=== PATIENT | female | born 2000 | race Hispanic/Latino ===

== ENCOUNTER → 2023-09-19 | Emergency (ER) | payer OTHER, BC ==
--- OUTSIDE RECORDS SUMMARY | 2023-09-19 11:31 | XMS REPORT | Continuity of Care Document ---
Author Name Unknown Address [address] [place] [address] [address] [place], [place] [id number] [place] [address] thconnect Address [address] [facility] [address] [place] [address] Care Team Providers Care Logistics Service Representative Name Role Phone [email or web address] Attending Clinician Unavaila ble [email or web address]_S Admitting Clinician Unavaila ble Payers Payer Name Policy Type Policy Number Effective Date Expirati on Date Source [place] [id number] 2021 00:00:00 Encounters Start Date/Time End Date/Time Encounter Type Admission Type Attending Clinicians Care Facility Care Department Encounter ID Source 2023-06-19 16:54:00 Outpatient [facility] [id number] [facility] 2023-08-28 00:00:00 2023-08-28 00:00:00 Outpatient [email or web address] [email or web address]_S PRIV PRIV [id number] [facility] 2023-07-30 00:00:00 2023-07-30 00:00:00 Outpatient [email or web address] diyala_S PRIV PRIV [id number] [facility] 2023-07-30 00:00:00 2023-07-30 00:00:00 Outpatient [email or web address] diyala_S PRIV PRIV [id number] [facility]
--- NOTE | 2023-09-19 12:47 | RAD REPORT ---
EXAM DESCRIPTION: CT - Head C Spine Mpr Wo Con - 09/19/2023 12:17 pm CLINICAL HISTORY: Head and neck injury status post fall. Head and neck pain COMPARISON: None. TECHNIQUE: Computed axial tomography of the head and cervical spine was obtained. Sagittal and coronal reconstruction was performed. All CT scans are performed using dose optimization technique as appropriate and may include automated exposure control or mA/KV adjustment according to patient size. FINDINGS: An intracranial bleed is not seen. The ventricles are normal in caliber. No significant hypodensity within the brain. An extra-axial fluid collection is not noted. Fluid within the visualized sinuses and mastoids is not seen A cervical fracture is not visualized. No dislocation is noted. IMPRESSION: No acute intracranial abnormality is seen. A cervical fracture is not visualized. If the patient continues to have symptoms to suggest intracranial /spinal cord pathology then MRI wou ld be recommended
--- NOTE | 2023-09-19 13:01 | RAD REPORT ---
EXAM DESCRIPTION: CT - CTFB CLINICAL HISTORY: FACIAL PAIN COMPARISON: No comparisons TECHNIQUE: Axial thin cut noncontrast CT images of the face were obtained with sagittal and coronal reconstruction images. All CT scans are performed using dose optimization technique as appropriate and may include automated exposure control or mA/KV adjustment according to patient size. FINDINGS: No acute facial bone fracture is seen.The mandible is intact. The globes and orbital contents are grossly unremarkable. The paranasal sinuses show mild inflammatory mucosal thickening most pronounced along the left assistant pastry chef ior ethmoidal air cells. Aerated secretions with narrowing at the left mastoid antrum and infundibulu m. IMPRESSION: Negative for facial bone fracture. Mild inflammatory mucosal thickening as above.
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
[2023-09-19 14:27] VITALS: BP 138/66; TEMP 97.9; O2SAT 100
== END ==
LOC: ER 11:30
DX: S09.90XA Unspecified injury of head, initial encounter (principal); S16.1XXA Strain of muscle, fascia and tendon at neck level, initial encounter; S00.33XA Contusion of nose, initial encounter; V49.49XA Driver injured in collision with other motor vehicles in traffic accident, initial encounter
CPT/HCPCS: 70450; 70486; 72125; 76377; 99283